=== PATIENT | male | born 1975 | race Caucasian/White ===

== ENCOUNTER 2020-04-06 19:27 | Emergency (ER) | payer OTHER, SELFPAY ==
[2020-04-06 20:50] VITALS: BP 149/91; PULSE 74; RESP 16; TEMP 36.6; O2SAT 97
--- NOTE | 2020-04-06 21:12 | ED.EYEPROB ---
HPI - Eye Problem General Chief complaint: Eye Problems Stated complaint: something in left eye Source: patient Mode of arrival: ambulatory Limitations: no limitations History of Present Illness HPI Narrative: This is a 44-year-old gentleman that presents with a foreign body sensation in the left eye after he was doing grinding and debris fluid to his lower causing nation and irritation with redness and tearing. Has normal visual acuity, no headache no nausea or vomiting. patient currently not up-to-date with his tetanus vaccine. chief complaint: eye pain, eye redness and foreign body Onset (ago): hour(s) Onset description: sudden Duration: constant Location: left eye Eye Symptoms: redness and foreign body sensation Place: work Mechanism: occurred while hammering/grinding Severity: moderate Severity scale (1-10): 6 If Pain, Quality: aching Related Data Allergies Allergy/AdvReac Type Severity Reaction Status Date / Time BEE STINGS Allergy Uncoded 11/26/10 19:13 Review of Systems Review of Systems: All systems reviewed & are unremarkable except as noted in HPI and below PMFSH Past Medical History Medical History Patient denies medical problems Family History Family History Other Diabetes mellitus Family history of allergic disorder Social History Social History Alcohol intake: current Exam Const: General: no acute distress and alert Orientation/consciousness: patient oriented x3 HENMT: Head: normal to inspection Eyes: Conjunctivae: conjunctival abnormality ( erythema and foreign body sensation) left Pupils: Equal, round and reactive pupils present Direct Ophthalmoscopy: photophobia Neck: Other: appears to have a corneal abrasion with a naked eye in the middle of his cornea Chest: Chest palpation & inspection: normal inspection of the chest Resp: Effort & Inspection: normal respiratory effort Cardio: Rate: regular rate Rhythm: regular rhythm GI: Auscultation: normal bowel sounds : Male General Exam: Yes normal external exam Neuro: General: patient oriented x3, moves all extremities and no meningeal signs Extrem: General: normal to inspection and no pedal edema Psych: Mental Status: mental status grossly normal Course Course Emergency Course: I was irrigated and with some magnifying wiser is a did not note any foreign degree of debris in the left eye but did notice a small corneal abrasion in his mid cornea the left eye Vital Signs Vital signs: Vital Signs Temperature 36.6 C 04/06/20 20:50 Pulse Rate 74 04/06/20 20:50 Respiratory Rate 16 04/06/20 20:50 Blood Pressure 149/91 H 04/06/20 20:50 Pulse Oximetry 97 04/06/20 20:50 Temperature 36.6 C 04/06/20 20:50 Pulse Rate 74 04/06/20 20:50 Respiratory Rate 16 04/06/20 20:50 Blood Pressure 149/91 H 04/06/20 20:50 Pulse Oximetry 97 04/06/20 20:50 Procedures Foreign Body Removal Foreign Body #1: Foreign Body Removal Date: 04/06/20 Foreign Body Removal Time: 21:17 Site: left and other ( eye) Sedation/Analgesia: none Technique: manual removal ( no foreign body visualized but there was a corneal abrasion in the mid cornea of the l) Confirmed by:: direct visualization Foreign Body Removal Narrative: fluorescein stain was used to visualize a corneal abrasion in the mid left cornea Critical Care Time Critical Care Time Critical Care Time: No Discharge Plan Discharge Clinical Impression: Abrasion, corneal Qualifiers: Encounter type: initial encounter Laterality: left Qualified Code(s): S05.02XA - Injury of conjunctiva and corneal abrasion without foreign body, left eye, initial encounter Patient Disposition: Home, Self-Care Condition: Stable Instructions: Antibiotic Form, Cor
[2020-04-06] MEDS: TETANUS,DIPHTHERIA,AC PERTUSSIS ADULT 0.5 ML (ADACEL) IM (21:32)
[2020-04-06] MEDS: NEOMYCIN/POLYMYXIN/DEXAMETH OP SUSP 5 ML BTL 1 DROP EACH EYE (21:34)
== END 2020-04-06 21:38 | disposition home or self-care (01) ==
PROVIDERS: Emergency Provider Emergency Medicine
DX: S05.02XA Injury of conjunctiva and corneal abrasion without foreign body, left eye, initial encounter (principal)
CPT/HCPCS: 90471; 90715; 99283; A9270

== ENCOUNTER 2020-08-30 08:00 | Outpatient (RCR) | payer OTHER, SELFPAY ==
[2020-06-04 15:00] VITALS: BP 124/78; PULSE 63; RESP 18; O2SAT 98; BMI 25.9
== END 2020-08-30 15:16 | disposition home or self-care (01) ==
PROVIDERS: PCP Family Medicine Sports Medicine; Visit Provider Internal Medicine Cardiovascular Disease
DX: Z95.1 Presence of aortocoronary bypass graft (principal)
CPT/HCPCS: 93798